=== PATIENT | male | born 1955 | race Caucasian/White ===

== ENCOUNTER → 2025-03-04 12:55 | Outpatient (REF) | payer OTHER, SELFPAY | LOC: MRI 3T 12:55 | PROVIDERS: ATTENDING PHYSICIAN Urology; FAMILY PHYSICIAN Family Medicine | DX: R97.20 Elevated prostate specific antigen [PSA] (principal) | CPT/HCPCS: 72197; A9575 ==

== ENCOUNTER 2025-03-09 12:21 | Emergency (ER) | payer OTHER, SELFPAY ==
[2025-03-09 12:24] VITALS: BP 142/71
[2025-03-09 12:53] VITALS: BMI 23.9
--- NOTE | 2025-03-09 13:30 | ED.GENMED ---
History of Present Illness
General
Chief Complaint: Skin Problem
Source: patient
Exam Limitations: none
Time Seen by Provider: 03/09/25 13:13
History of Present Illness
History of Present Illness:
See MDM
Past History
Past History
ED Past Medical History: None
ED Past Surgical History: None
Social History
Tobacco: Non-smoker
Alcohol: None
Phy Exam
Physical Exam
Physical Exam:
See MDM
Course
Orders/Labs/Results
Orders:
Orders
03/09/25 13:21
Wound Culture [Wound/Abscess/Other Culture] Urgent
ARSH Source: Abscess
Specimen Description:
Date Specimen was Collected: 03/09/25
Time Specimen was Collected: 13:25
Comment: Left thumb paronychia
03/09/25 13:23
Cephalexin Monohydrate [Keflex] 500 mg PO NOW STA
Vital Signs
Initial and Last Documented VS:
Initial Vital Signs
Temp Pulse Resp BP Pulse Ox
97.8 F 74 18 142/71 98
03/09/25 12:24 03/09/25 12:24 03/09/25 12:24 03/09/25 12:24 03/09/25 12:24
Last Documented Vital Signs
Temp Pulse Resp BP Pulse Ox
97.8 F 74 18 142/71 98
03/09/25 12:24 03/09/25 12:24 03/09/25 12:24 03/09/25 12:24 03/09/25 12:24
Procedures
Incision/Drainage/Joint Aspiration
Left Distal Thumb:
Anethesia: 1% Lidocaine
Preparation: cleaned with alcohol wipe
Type of procedure: incise and drain
Nature of site: abscess
Description of abscess: greater than 3cm
Loculations broken up: Yes
How much fluid was obtained?: small amount
Fluid description: purulent
Treatment: left open for drainage
MDM/Problems Addressed
Differential Diagnosis Includes:
Note:
CHIEF COMPLAINT(S)
Thumb swelling and pain.
HISTORY OF PRESENT ILLNESS
The patient is a 70-year-old male who presents with swelling and pain in his thumb. Approximately 10 days ago, the patient started experiencing symptoms kelsea to having a splinter, but nothing was found. He has been on antibiotics since Friday after
visiting urgent care. At the urgent care visit, the thumb was red but not swollen as it is now. The condition has progressively worsened despite antibiotic treatment. The patient mentioned experiencing a similar condition in his toe about a month
and a half ago, which was managed with a culture and subsequent antibiotic treatment.
SOCIAL DETERMINANTS OF HEALTH
The conversation revealed no explicit social determinants of health impacting care.
EXTERNAL RECORDS REVIEWED
The patient reported previous urgent care visits where he was treated with antibiotics after cultures were taken.
CHRONIC MEDICAL CONDITIONS SIGNIFICANTLY AFFECTING CARE
Chronic conditions affecting care were not specifically mentioned in this conversation.
PHYSICAL EXAM
General: Alert, no acute distress.
Skin: Warm, dry.
Head: Normocephalic, atraumatic
Neck: Appears supple, trachea midline.
Eyes, Ears, Nose, Mouth, and Throat: Moist mucous membranes
Cardiovascular: No signs of cyanosis
Respiratory: Respirations are non-labored.
Abdomen: Non-distended
Musculoskeletal: Paronychia to left thumb. The distal thumb is otherwise neurovascular intact
Neurological: No focal neurological deficit observed.
Psychiatric: Cooperative, appropriate mood and affect.
PLAN
The plan includes performing an incision and drainage of the abscess. Instructions for post-procedure care include warm soap compresses to aid in drainage.
DIFFERENTIAL DIAGNOSIS
The Differential Diagnosis includes, in no particular order and is not limited to:
- Paronychia
- Cellulitis
- Felon
- Subungual abscess
- Herpetic curtis
- Ingrown nail complication
- Contact dermatitis
- Chronic eczema
- Allergic reaction
- Osteomyelitis
SUMMARY OF ENCOUNTER
The patient presented with a painful, swollen thumb following persistent symptoms despite antibiotic treatment. Examination revealed characteristics consistent with a paronychia. The treatment plan involves incision and drainage to alleviate
symptoms by allowing the abscess to drain. This approach aligns with addressing the cause of symptoms not resolvable with antibiotics alone due to the walling-off effect of an abscess.
PROCEDURES
An incision and drainage procedure is planned for the thumb abscess to facilitate drainage and promote healing.
MEDICATION RECONCILIATION
Continuation of antibiotics previously prescribed for the condition, though specifics were not detailed. The appropriateness of the antibiotic was noted.
MEDICAL DECISION MAKING
-Complexity of Data Reviewed: Chronic conditions affecting care were not specifically mentioned in this conversation. The DDx list includes paronychia, cellulitis, felon, subungual abscess, herpetic curtis, and others.
-Data:
Category 1
No specific independent reviews or tests ordered that were discussed.
Category 2
No external records or additional history from alternative sources were identified beyond the patients account.
Category 3
No discussions with other healthcare providers were reported.
-Risk:
Prescription medication was prescribed, continuing the previously given antibiotics.
Care significantly affected by Social Determinants of Health was not explicitly mentioned in this conversation.
Disposition:
SUMMARY OF ENCOUNTER
The patient presented with swelling and pain in the left thumb. Examination revealed evidence of paronychia. An incision and drainage (I&D) procedure was performed using a number 11 blade after numbing the area. The patient tolerated the procedure
well. A wound culture was obtained. It was noted that the patient is already on an antibiotic regimen, and cephalexin was added to broaden coverage. Return precautions were discussed.
PLAN
Continue with the current prescribed antibiotics and add cephalexin. Monitor for signs of infection or complications. Discussed return precautions with the patient.
PROCEDURES
Incision and drainage (I&D) of the paronychia on the left thumb using a number 11 blade after numbing.
PATIENT EDUCATION AND COUNSELING
Educated the patient on signs of infection, including increased redness, swelling, or discharge. Instructed on proper wound care and when to seek further medical attention.
MEDICATION RECONCILIATION
Patient to continue on current antibiotic regimen and start on cephalexin.
MEDICAL DECISION MAKING
- Complexity of Data Reviewed: DDx list included paronychia, cellulitis, felon, subungual abscess, herpetic curtis, and other potential conditions affecting the thumb.
- Risk: Prescription medication was prescribed (cephalexin).
Care significantly affected by Social Determinants of Health was not mentioned.
DIAGNOSIS
Paronychia (ICD-10 code: L03.011)
*Pulse Oximetry
SaO2: 98
Patient hypoxic: no
*Critical Care Note
Total Time (30-74mins, 75-104mins- exclusive of procedures): Not Applicable
ED Attending Note
-
Portions of this chart may have been created with voice recognition software.� Occasional wrong word or��sound alike� substitutions may have occurred due to the inherent limitations of voice recognition software.
Discharge Plan
Departure
Patient Disposition: Home (Routine Discharge)
Date of Disposition: 03/09/25
Time of Disposition: 13:31
Patient with high blood pressure during this ER visit?: No
Discharge Problem:
Paronychia
Instructions: Paronychia - ED (DC)
Prescriptions:
New
cephalexin 500 mg capsule
500 mg PO BID 7 Days Qty: 14 0RF
No Action
tamsulosin 0.4 mg Capsule
0.4 mg PO QPM
Referrals:
Yakelin Garcia MD [Family Provider, Family Practice]
Activity Restrictions/Additional Instructions:
Watch for worsening signs of infection: fever over 100.5', increasing pain, red streaks around wound, swelling, or increasing drainage of pus. If any of these happen, return to ED promptly. I am adding a another antibiotic to be taken with the
antibiotic you are already taking. Make sure that you take all your antibiotics as directed and finish your prescription even if you feel better before the bottle is empty
Interventions
Interventions:
*Risk Screen - Suicide Last Done: 03/09/25 12:26
*General Assessment Last Done: 03/09/25 12:52
*Neglect/Abuse Screening Last Done: 03/09/25 12:52
*ED- Fall Risk Assessment Last Done: 03/09/25 12:52
*ED COVID-19 Vaccine History Last Done: 03/09/25 12:52
*ED Influenza Vaccine History Last Done: 03/09/25 12:52
ED-Skin Assessment Last Done: 03/09/25 12:54
Discharge Date and Time
Print Language: FRISIAN
[2025-03-09] MEDS: KEFLEX 500 MG PO (13:38)
== END 2025-03-09 14:09 | disposition home or self-care (01) ==
LOC: EMR 12:21
PROVIDERS: EMERGENCY PHYSICIAN Student in an Organized Health Care Education/Training Program; FAMILY PHYSICIAN Family Medicine
DX: L03.012 Cellulitis of left finger (principal)
CPT/HCPCS: 26010; 99283; 87070; 87147; 87205